=== PATIENT | male | born 1980 | race Caucasian/White ===

== ENCOUNTER 2019-02-10 22:30 | Emergency (ER) | payer OTHER ==
[~2019-02-10] VITALS: Ht 182.9 cm; Wt 88.0 kg
[2019-02-10 23:25] LABS: *BILIRUBIN,URIN NEGATIVE (NEGATIVE); *CLARITY,URINE CLEAR (CLEAR); *COLOR,URINE YELLOW (YELLOW); *KETONES,URINE NEGATIVE (NEGATIVE); *UROBILINOGEN,URINE 0.2 E.U./dl (NORMAL); LEUKOCYTE ESTERASE ,URINE NEGATIVE (NEGATIVE); NITRITE, URINE NEGATIVE (NEGATIVE); UGLUCOSE NEGATIVE (NEGATIVE)
[2019-02-10 23:28] LABS: *BLOOD, URINE TRACE (NEGATIVE)
[2019-02-10 23:33] LABS: BACTERIA,URINE NONE SEEN /HPF (NONE SEEN); SQUAMOUS EPITHELIAL CELL,UR FEW /HPF (NONE SEEN); WBC,URINE NONE SEEN /HPF (0-3)
[2019-02-10 23:42] LABS: BASOPHILS # (AUTO) 0.1 K/uL (0.0-8.0); BASOPHILS % (AUTO) 1.5 % (0.0-2.0); EOSINOPHILS # (AUTO) 0.7 K/uL (0.0-0.7); EOSINOPHILS % (AUTO) 9.5 % (0.0-7.0); HEMATOCRIT 45.5 % (36.7-47.1); HEMOGLOBIN 15.8 g/dL (12.5-16.3); LYMPHOCYTES # (AUTO) 2.4 K/uL (20.0-40.0); MEAN CORPUSCULAR HEMOGLOBIN 30.7 uug (23.8-33.4); MEAN CORPUSCULAR HGB CONC 35 g/dL (32.5-36.3); MEAN CORPUSCULAR VOLUME 88.2 fL (73.0-96.2); MONOCYTES # (AUTO) 0.6 K/uL (2.0-10.0); MONOCYTES % (AUTO) 9.1 % (0.0-11.0); NEUTROPHILS # (AUTO) 3.2 K/uL (1.8-8.9); NEUTROPHILS % (AUTO) 45.9 % (38.5-71.5); PLATELET COUNT (AUTO) 289 K/uL (152-348); RED BLOOD CELL COUNT(AUTO) 5.16 MIL/uL (4.06-5.63)
[2019-02-10 23:52] LABS: POTASSIUM 3.9 mmol/L (3.5-5.1)
[2019-02-10 23:58] LABS: BILIRUBIN,DIRECT 0.1 mg/dL (0.0-0.2); BILIRUBIN,TOTAL 0.5 mg/dL (0.2-1.0); TOTAL PROTEIN, SERUM 7.9 g/dL (6.4-8.2)
--- NOTE | 2019-02-11 00:40 | NUR ---
Patient discharged to home in stable conditon. Written and verbal after care instructions given. Patient verbalizes understanding of instructions. Patient ambulated with stable gait.
[2019-02-11 00:43] VITALS: BP 140/70
== END 2019-02-11 00:44 | disposition home or self-care (01) ==
LOC: ER 22:30
DX: R30.0 Dysuria (principal); F17.200 Nicotine dependence, unspecified, uncomplicated
CPT/HCPCS: 36415; 83690; 85025; 87086; A4663

== ENCOUNTER 2019-02-15 17:17 | Emergency (ER) | payer OTHER ==
[~2019-02-15] VITALS: Ht 182.9 cm; Wt 90.7 kg
--- NOTE | 2019-02-15 17:48 | NUR ---
Pt out of ER for Ct.
--- NOTE | 2019-02-15 18:04 | NUR ---
Pt back from CT.
[2019-02-15] MEDS ORDERED: MORPHINE SULFATE 4 MG/1 ML DISP.SYRIN ONE (18:16)
[2019-02-15] MEDS: MORPHINE SULFATE 4 MG/1 ML DISP.SYRIN IM ONE (18:16)
[2019-02-15 18:17] LABS: *BILIRUBIN,URIN NEGATIVE (NEGATIVE); *CLARITY,URINE CLEAR (CLEAR); *COLOR,URINE AMBER (YELLOW); *KETONES,URINE TRACE (NEGATIVE); LEUKOCYTE ESTERASE ,URINE NEGATIVE (NEGATIVE); NITRITE, URINE NEGATIVE (NEGATIVE); UGLUCOSE NEGATIVE (NEGATIVE)
[2019-02-15 18:22] LABS: *BLOOD, URINE TRACE (NEGATIVE)
[2019-02-15 18:24] LABS: CALCIUM OXALATE CRYSTALS,UR FEW /HPF (NONE SEEN); MUCUS,URINE MODERATE /LPF (0-FEW); WBC,URINE 0-3 /HPF (0-3)
[2019-02-15] MEDS ORDERED: HYDROMORPHONE 1 MG/1 ML DISP.SYRIN ONE (18:54)
[2019-02-15] MEDS: HYDROMORPHONE 1 MG/1 ML DISP.SYRIN IM ONE (18:58)
--- NOTE | 2019-02-15 19:07 | NUR ---
Patient discharged to home in stable conditon. Written and verbal after care instructions given. Patient verbalizes understanding of instructions.
[2019-02-15 19:08] VITALS: BP 113/76
== END 2019-02-15 19:09 | disposition home or self-care (01) ==
LOC: ER 17:19
DX: N20.0 Calculus of kidney (principal); F17.290 Nicotine dependence, other tobacco product, uncomplicated
CPT/HCPCS: 74176; 81001; 96372 ×2; 99284; 99406; J1170; J2270; A4663